=== PATIENT | male | born 1985 | race Caucasian/White ===

== ENCOUNTER → 2022-05-03 | Emergency (ER) | payer OTHER ==
[~2022-05-03] VITALS: Ht 182.9 cm; Wt 70.3 kg
[2022-05-03 10:49] VITALS: BP_SYST 142
--- NOTE | 2022-05-03 15:01 | NUR ---
CALL TO PATIENT IN [place], NO ANSWER
== END | disposition left against medical advice (07) ==
LOC: SED 10:28
DX: F19.939 Other psychoactive substance use, unspecified with withdrawal, unspecified (principal); Z53.21 Procedure and treatment not carried out due to patient leaving prior to being seen by health care provider